=== PATIENT | female | born 1995 ===

== ENCOUNTER 2017-03-09 10:49 | Emergency (ER) | payer BC ==
[2017-03-09] MEDS ORDERED: Sodium Chloride 0.9% 1,000 ML IV STA (11:15)
--- NOTE | 2017-03-09 11:17 | ED PDOC ---
HPI: Abdomen Time Seen by Provider: 03/09/17 11:08 History Per: Patient Onset/Duration Of Symptoms: Days (5) Current Symptoms Are (Timing): Still Present Severity: Moderate Pain Scale Rating Of: 4 Location Of Pain/Discomfort: Epigastric Quality Of Discomfort: Sharp Associated Symptoms: Nausea, Vomiting. denies: Diarrhea Exacerbating Factors: None Additional Complaint(s): Epigastric absd pain assoc with nausea and vomiting x 5 days. No fever. No blood in vomitus. Past Medical History Vital Signs: Last Vital Signs Temp 99 F 03/09/17 11:37 Pulse 103 H 03/09/17 11:37 Resp 18 03/09/17 11:37 BP 133/68 03/09/17 11:37 Pulse Ox 98 03/09/17 11:37 - Medical History PMH: Asthma (In childhood), Gastritis Denies: HIV, Chronic Kidney Disease - Family History Family History: States: Unknown Family Hx - Home Medications Home Medications: Ambulatory Orders Medication Instructions Recorded Amoxicillin/Clavulanate [Augmentin 1 tab PO BID #0 tab 02/16/16 875 MG-125 MG] oxyCODONE/Acetaminophen [Percocet 1 tab PO Q4 PRN #0 tab 02/16/16 5/325 mg Tab] Amoxicillin/Clavulanate [Augmentin 1 tab PO BID #14 tab 06/06/16 875 MG-125 MG] Famotidine [Pepcid] 20 mg PO Q12 #20 tab 03/09/17 Ondansetron [Zofran] 4 mg PO Q8H #10 tab 03/09/17 - Allergies Allergies/Adverse Reactions: Allergies Allergy/AdvReac Type Severity Reaction Status Date / Time No Known Allergies Allergy Verified 06/06/16 10:58 Review of Systems ROS Statement: Except As Marked, All Systems Reviewed And Found Negative Gastrointestinal: Positive for: Nausea, Vomiting, Abdominal Pain Physical Exam - Reviewed Nursing Documentation Reviewed: Yes Vital Signs Reviewed: Yes - Physical Exam Appears: Positive for: Non-toxic, No Acute Distress Head Exam: Positive for: ATRAUMATIC, NORMAL INSPECTION, NORMOCEPHALIC Skin: Positive for: Normal Color, Warm, DRY Eye Exam: Positive for: EOMI, Normal appearance, PERRL ENT: Positive for: Normal ENT Inspection Neck: Positive for: Normal, Painless ROM Cardiovascular/Chest: Positive for: Regular Rate, Rhythm Respiratory: Positive for: CNT, Normal Breath Sounds Gastrointestinal/Abdominal: Positive for: Bowel Sounds, Soft, Tenderness ( Epigastric) Back: Positive for: Normal Inspection Extremity: Positive for: Normal ROM Neurologic/Psych: Positive for: Alert, Oriented - Laboratory Results Result Diagrams: 03/09/17 11:40 03/09/17 11:40 Disposition - Clinical Impression Clinical Impression: Gastritis - Patient ED Disposition Is Patient to be Admitted: No Counseled Patient/Family Regarding: Studies Performed, Diagnosis, Need For Followup, Rx Given - Disposition Referrals: [facility] [Outside] Disposition: Routine/Home Disposition Time: 14:37 Condition: FAIR Prescriptions: Famotidine [Pepcid] 20 mg PO Q12 #20 tab Ondansetron [Zofran] 4 mg PO Q8H #10 tab Instructions: Gastritis (ED)
[2017-03-09 11:39] VITALS: BP 133/68; PULSE 103; RESP 18; TEMP 99; O2SAT 98
[2017-03-09 11:52] LABS: BASO % 0.2 % (0.0-2.0); LYMPH # 1.5 K/uL (1.0-4.3); LYMPH % 13.2 % (20.0-40.0); MEAN CELL VOLUME 91.2 fl (81.0-99.0); MEAN CORPUSCULAR HEMOGLOBIN 31.2 pg (27.0-31.0); MEAN CORPUSCULAR HGB CONC 34.3 g/dL (33.0-37.0); MEAN PLATELET VOLUME 8.1 fl (7.2-11.7); MONO # 0.6 K/uL (0.0-0.8); MONO % 5.2 % (0.0-10.0); NEUT # 9.1 K/uL (1.8-7.0); NEUT % 81.4 % (50.0-75.0); NRBC % 0.1 % (0.0-0.0); RED CELL DISTRIBUTION WIDTH 13.4 % (11.5-14.5); WHITE BLOOD COUNT 11.2 K/uL (4.8-10.8)
[2017-03-09 12:03] LABS: ALB/GLOB RATIO 1.3 (1.0-2.1); ALKALINE PHOSPHATASE 59 U/L (38-126); ALT/SGPT 30 U/L (9-52); AST/SGOT 19 U/L (14-36); BILIRUBIN,TOTAL 0.7 mg/dl (0.2-1.3); BLOOD UREA NITROGEN 10 mg/dl (7-17); CALCIUM 9.5 mg/dL (8.4-10.2); CARBON DIOXIDE 19 mmol/L (22-30); CHLORIDE 108 mmol/L (98-107); GFR AFRICAN-AMERICAN > 60; GLUCOSE,RANDOM 111 mg/dL (65-105); POTASSIUM 3.5 MMOL/L (3.6-5.0); SODIUM 144 mmol/l (132-148); TOTAL PROTEIN 9.1 G/DL (6.3-8.2)
== END 2017-03-09 14:58 | disposition home or self-care (01) ==
LOC: H.ER 10:49
DX: K29.70 Gastritis, unspecified, without bleeding (principal); J45.909 Unspecified asthma, uncomplicated
CPT/HCPCS: 80053; 81025; 85025; 96374; 96375; 99283; J2405; J2765; J7040

== ENCOUNTER 2018-02-13 06:46 | Emergency (ER) | payer BC ==
--- NOTE | 2018-02-13 07:58 | ED PDOC ---
Lower Extremity Pain/Injury Time Seen by Provider: 02/13/18 07:12 Chief Complaint (Nursing): Lower Extremity Problem/Injury Additional Complaint(s): 22 year old female with no significant past medical history presents to the ED complaining of left knee injury onset last night. 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 She had some pain at night, but was able to ambulate. Pain worsened when she woke up and she realized she is unable to straighten her left knee and thus she is unable to ambulate without assistance. Patient took no medication for pain and did not apply ice. Patient d enies any other injuries or medical complaints. PMD: [place] - Ankle/Foot Currently Unable To: Straighten Past Medical History Reviewed: Historical Data, Nursing Documentation, Vital Signs Vital Signs: Last Vital Signs Temp 97.9 F 02/13/18 06:50 Pulse 87 02/13/18 06:50 Resp 17 02/13/18 06:50 BP 117/82 02/13/18 06:50 Pulse Ox 99 02/13/18 06:50 - Medical History PMH: Asthma (In childhood), Gastritis Denies: HIV, Chronic Kidney Disease - Surgical History Surgical History: No Surg Hx - Family History Family History: States: Unknown Family Hx - Home Medications Home Medications: Ambulatory Orders Medication Instructions Recorded Amoxicillin/Clavulanate [Augmentin 1 tab PO BID #0 tab 02/16/16 875 MG-125 MG] oxyCODONE/Acetaminophen [Percocet 1 tab PO Q4 PRN #0 tab 02/16/16 5/325 mg Tab] Amoxicillin/Clavulanate [Augmentin 1 tab PO BID #14 tab 06/06/16 875 MG-125 MG] Famotidine [Pepcid] 20 mg PO Q12 #20 tab 03/09/17 Ondansetron [Zofran] 4 mg PO Q8H #10 tab 03/09/17 Naproxen 500 mg PO BID #20 tab 02/13/18 - Allergies Allergies/Adverse Reactions: Allergies Allergy/AdvReac Type Severity Reaction Status Date / Time lactose AdvReac DIARRHEA Verified 02/13/18 06:54 Review of Systems ROS Statement: Except As Marked, All Systems Reviewed And Found Negative Musculoskeletal: Positive for: Other (left knee pain ) Physical Exam - Reviewed Nursing Documentation Reviewed: Yes Vital Signs Reviewed: Yes - Physical Exam Appears: Positive for: No Acute Distress Head Exam: Positive for: ATRAUMATIC Extremity: Positive for: Normal ROM (Except in left knee, able to bend with limited extension, unable to fully straighten leg, ), Tenderness (to palpation to the left posterior knee), Other (No ecchymosis, negative [place] test, other knee exams were stable: drawer test.). Negative for: Calf Tenderness (and no swelling), Deformity, Swelling Neurologic/Psych: Positive for: Alert, Oriented - ECG O2 Sat by Pulse Oximetry: 99 (RA) Pulse Ox Interpretation: Normal Medical Decision Making Medical Decision Making: Time: 725 Initial Impression: Left knee pain, knee injury Differential diagnoses include but are not limited to: Knee fracture, dislocation, ligament or tendon injury Initial Plan: --Left knee XR --Motrin 600 mg PO Time: 08 Left Knee XR: FINDINGS: BONES: Normal. No fracture. JOINTS: Normal. No osteoarthritis. JOINT EFFUSION: None. OTHER FINDINGS: None. IMPRESSION: Normal radiographs of the left knee. Time: 09 --Patient has been placed on knee immobilizer on left leg, crutches provided. She received crutch training. She reports improvement in symptoms and will follow up with Dr. Yanez in 1-2 days. Scribe Attestation: Documented by Rosina Tucker, acting as a scribe for Maya Cummins MD Provider Scribe Attestation: All medical record entries made by the Scribe were at my direction and personally dictated by me. I have reviewed the chart and agree that the record accurately reflects my personal performance of the history, physical exam, medical decision making, and the department course for this patient. I have also personally directed, reviewed, and agree with the discharge instructions and disposition. Disposition - Clinical Impression Clinical Impression: Knee pain, left - Patient ED Disposition Is Patient to be Admitted: No Doctor Will See Patient In The: Office Counseled Patient/Family Regarding: Studies Performed, Diagnosis, Need For Followup - Disposition Referrals: Radha Yanez MD [Staff Provider] - Disposition: Routine/Home Disposition Time: 09:21 Condition: GOOD Additional Instructions: DENNIS BACA, thank you for letting us take care of you today. Your provider was Maya Cummins MD and you were treated for LEFT LEG PAIN. The emergency medical care you received today was directed at your acute symptoms. If you were prescribed any medication, please fill it and take as directed. It may take several days for your symptoms to resolve. Return to the Emergency Department if your symptoms worsen, do not improve, or if you have any other problems. Please contact your doctor or call one of the physicians/clinics you have been referred to that are listed on the Patient Visit Information form that is included in your discharge packet. Bring any paperwork you were given at discharge with you along with any medications you are taking to your follow up visit. Our treatment cannot replace ongoing medical care by a primary care provider outside of the emergency department. Thank you for allowing the [facility] team to be part of your care today. If you had an X-Ray or CT scan: A Radiologist will review the ED reading if any change in treatment is needed we will contact you. If you had a blood, urine, or wound culture: It will take several days for the results, if any change in treatment is needed we will contact you. If you had an STI test: It will take 48 hours for the results. Please call after 1 week if you have not heard back. Prescriptions: Naproxen 500 mg PO BID #20 tab Instructions: Knee Pain (DC)
--- NOTE | 2018-02-13 08:24 | RAD ---
Date of service: 02/13/2018 PROCEDURE: Left Knee Radiographs. HISTORY: Pain. COMPARISON: None. FINDINGS: BONES: Normal. No fracture. JOINTS: Normal. No osteoarthritis. JOINT EFFUSION: None. OTHER FINDINGS: None. IMPRESSION: Normal radiographs of the left knee.
[2018-02-13 09:39] VITALS: BP 115/77; PULSE 81; RESP 16; TEMP 98; O2SAT 100
== END 2018-02-13 09:38 | disposition home or self-care (01) ==
LOC: H.ER 06:46
DX: S89.92XA Unspecified injury of left lower leg, initial encounter (principal); Z87.19 Personal history of other diseases of the digestive system; J45.909 Unspecified asthma, uncomplicated; X50.9XXA Other and unspecified overexertion or strenuous movements or postures, initial encounter; Y93.B9 Activity, other involving muscle strengthening exercises